=== PATIENT | female | born 1935 | race African-American/Black ===

== ENCOUNTER 2021-09-06 04:33 | Day surgery (SDC) | payer OTHER ==
[2021-09-03 14:21] VITALS: BMI 28.9
[2021-09-06 09:00] VITALS: TEMP 98.2
[2021-09-06 10:03] VITALS: BP 123/58; PULSE 73
== END 2021-09-06 10:00 | disposition home or self-care (01) ==
LOC: JASU-ENDO 04:33
PROVIDERS: ATTEND Internal Medicine Gastroenterology
PROC: 0DBM8ZX Excision of Descending Colon, Via Natural or Artificial Opening Endoscopic, Diagnostic (ICD-10-PCS; principal; 2021-09-06 09:45)
DX: Z12.11 Encounter for screening for malignant neoplasm of colon (principal); D12.4 Benign neoplasm of descending colon; K57.30 Diverticulosis of large intestine without perforation or abscess without bleeding; K64.8 Other hemorrhoids; Z86.010 Personal history of colon polyps; I10 Essential (primary) hypertension
CPT/HCPCS: 88305-TC